=== PATIENT | female | born 1960 | race Caucasian/White ===

== ENCOUNTER → 2016-06-08 | Outpatient (CLI) | payer BC ==
[~2016-06-08] MED LIST: ASPEC81 PO; LISI-461 PO
[2016-06-08 13:03] LABS: BLOOD UREA NITROGEN 14 mg/dl (7-18); BUN/CREATININE RATIO 15.7 (10-20); CARBON DIOXIDE 27 mmol/L (21-32); CHLORIDE 110 mmol/L (98-107); CREATININE 0.91 mg/dl (0.60-1.20); GLUCOSE 90 mg/dl (70-99); SODIUM 144 mmol/L (136-145)
[2016-06-08 13:09] LABS: CHOLESTEROL 182 mg/dl (0-200); CHOLESTEROL/HDL RATIO 3.9; HDL CHOLESTEROL 47 mg/dl; TRIGLYCERIDES 120 mg/dl (0-150); VERY LOW DENSITY LIPOPROT CALC 24 mg/dl
== END | disposition home or self-care (01) ==
LOC: C.LABSPEC 12:24
PROVIDERS: ATTEND Internal Medicine
DX: E78.5 Hyperlipidemia, unspecified (principal); I10 Essential (primary) hypertension

== ENCOUNTER → 2016-11-14 | Outpatient (CLI) | payer BC ==
--- NOTE | 2016-11-15 13:42 | MAMMOGRAPHY REPORT ---
BILATERAL DIGITAL SCREENING MAMMOGRAM TOMOSYNTHESIS WITH CAD: 11/14/2016 CLINICAL HISTORY: Routine screening. TECHNIQUE: Breast tomosynthesis in addition to standard 2D mammography was performed. Current study was also evaluated with a Computer Aided Detection (CAD) system. COMPARISON: Comparison is made to exams dated: 11/09/2015 mammogram, 10/26/2014 mammogram, 10/23/2013 m ammogram, 10/07/2012 mammogram, 10/05/2011 mammogram, and 10/04/2010 mammogram - [facility] enter. BREAST COMPOSITION: There are scattered areas of fibroglandular density in both breasts. FINDINGS: The parenchymal pattern is unchanged. No developing mass, architectural distortion or clus ter of suspicious microcalcifications is seen in either breast. IMPRESSION: ACR BI-RADS CATEGORY 2: BENIGN There is no mammographic evidence of malignancy. A 1 year screening mammogram is recommended. The pa tient will receive written notification of the results. Approximately 10% of breast cancers are not detected with mammography. A negative mammographic report should not delay biopsy if a clinically suggestive mass is present. Ally Fraire M.D. ay/:11/14/2016 17:06:56 Communications Advisor: Bj DOTY(R)(M), letter sent: Normal 1/2 BI-RADS Code: ACR BI-RADS Category 2: Benign
== END | disposition home or self-care (01) ==
LOC: C.MAMM 08:08
PROVIDERS: ATTEND Internal Medicine
DX: Z12.31 Encounter for screening mammogram for malignant neoplasm of breast (principal)

== ENCOUNTER 2024-01-21 08:27 | Observation (INO) ==
--- NOTE | 2023-12-05 15:40 | PAT Medication Instructions ---
Medication Instructions Date of Service December 05, 2023 Home Medications atorvastatin 20 mg tablet 20 mg PO QAM cholecalciferol (vitamin D3) 50 mcg (2,000 unit) tablet (Vitamin D3) 50 mcg PO QAM krill oil 500 mg capsule 500 mg PO QAM losartan 50 mg tablet 50 mg PO QAM omeprazole 20 mg capsule,delayed release 20 mg PO QAM triamterene 37.5 mg-hydrochlorothiazide 25 mg tablet 1 tab PO QAM STOP taking 2 weeks before surgery (or as soon as possible if surgery is within 2 weeks) krill oil 500 mg capsule 500 mg PO QAM DO NOT take the morning of surgery cholecalciferol (vitamin D3) 50 mcg (2,000 unit) tablet (Vitamin D3) 50 mcg PO QAM losartan 50 mg tablet 50 mg PO QAM triamterene 37.5 mg-hydrochlorothiazide 25 mg tablet 1 tab PO QAM Take morning of surgery With a small sip of water, OTHERWISE NOTHING TO EAT OR DRINK AFTER MIDNIGHT: atorvastatin 20 mg tablet 20 mg PO QAM omeprazole 20 mg capsule,delayed release 20 mg PO QAM Other Notes If you have any questions please call us at [phone] or [phone] or [phone] or [phone]
--- NOTE | 2023-12-13 11:10 | Anesthesiology Consultation ---
Date of Service December 13, 2023 Assessment & Plan (1) Encounter for pre-operative examination: - Case discussed in detail with Dr. Lange who advised patient is acceptable to proceed. - Outpatient joint assessment: Patient is currently scheduled for inpatient pathway. If re-evaluated and patient/surgeon requests outpatient pathway, patient is not ideal candidate for outpatient joint program from anesthesia standpoint. Chart Review Chart Review: Acceptable Risk for Surgery and Patient seen in Pre Admission Testing Teaching & Discussion Pre-Anesthesia Teaching/Discussion Notes: Instructed NPO after midnight before surgery, except medications with 15 cc of water. Medication instructions provided according to the PAT guidelines. History Surgery Operation Date: 01/21/24 12:00 Proposed Procedures p Right Total Knee Arthroplasty - Carlos Jones, Height/Weight Height: 5 ft 5 in Weight: 105.9 kg Allergies Allergy/AdvReac Type Severity Reaction Status Date / Time acetaminophen [From Percocet] AdvReac Intermediate Rash Verified 12/05/23 13:47 oxycodone [From Percocet] AdvReac Intermediate Rash Verified 12/05/23 13:47 Medications Home Medications Medication Instructions Recorded Confirmed Last Taken atorvastatin 20 mg tablet 20 mg PO QAM 12/05/23 12/05/23 Unknown cholecalciferol (vitamin D3) 50 50 mcg PO QAM 12/05/23 12/05/23 Unknown mcg (2,000 unit) tablet (Vitamin D3) krill oil 500 mg capsule 500 mg PO QAM 12/05/23 12/05/23 Unknown losartan 50 mg tablet 50 mg PO QAM 12/05/23 12/05/23 Unknown omeprazole 20 mg capsule,delayed 20 mg PO QAM 12/05/23 12/05/23 Unknown release triamterene 37.5 1 tab PO QAM 12/05/23 12/05/23 Unknown mg-hydrochlorothiazide 25 mg tablet acetaminophen 650 mg tablet 650 mg PO Q6H PRN Pain 12/13/23 12/13/23 Unknown Additional Notes: Patient reports no reaction/adverse effects with OTC acetaminophen. Past Medical History Medical History Dysphagia chronic, resolved-on omeprazole by GI recommendation; denies choking Hearing loss of both ears hearing aids History of stomach ulcers (~09/2022) HTN (hypertension) controlled, stable per pt Patient denies h/o stroke, seizures, heart attack, heart failure, DM, blood clots/DVTs or blood transfusions. Exercise / Class Metabolic Activity II 4-5 Yardwork/Stairs/Walk up hill (mild shortness of breath with one flight of stairs ongoing for several years-denies change or worsening; denies chest discomfort) Past Family History Family History (Updated 12/13/23 @ 11:22 by Katie Duran PA-C) Sister Diabetes Past Surgical History Surgical History Hx of colonoscopy Hx of esophagogastroduodenoscopy Hx of hysterectomy Past Anesthesia History No Hx of Anesthesia Complications and No Family Hx of Anesthesia Complications History of PONV No Hx of PONV and Hx of Motion Sickness Social History Smoking Status: Never smoker Do You Dip or Chew Tobacco: No Hx Alcohol Use: No Hx Substance Use: No substance use type: does not use Review of Systems Occasional snoring, denies witnessed apneas. Patient denies chest pain, fever, chills, cough, wheezing, or palpitations. Physical Exam Vital Signs Vitals BP 138/84 P 73 TEMP 97.9 SP02 95% on RA RESP 17 Physical Patient resting comfortably in chair in no acute distress, alert and oriented, responding appropriately throughout visit Full cervical extension range of motion without pain TMD 3.5 finger breadths Mallampati Score 2 Dentition: several crowns and left upper side implant, denies chipped or loose teeth, caps, or bridges Lungs: normal respiratory effort. Good air movement, clear throughout to auscultation, no adventitious breath sounds Cardiac: regular rate and rhythm, no murmurs noted Carotid arteries: negative bruit bilat Lab Results Anesthesia Preop Results Results Anesthesia Widget: WBC 7.93 K/ul (4.8-10.8) 12/13/23 Hgb 14.3 g/dl (12.0-16.0) 12/13/23 Hct 44.1 % (37.0-47.0) 12/13/23 Plt 338 K/uL (130-400) 12/13/23 PT 10.7 Seconds (9.0-12.0) 12/13/23 PTT 29 Seconds (21-31) 12/13/23 INR 1.0 (0.9-1.1) 12/13/23 Blood Type O Negative 12/13/23 Antibody Screen NEGATIVE 12/13/23 Testing Laboratory Results 12/10/23 SODIUM: 140 POTASSIUM: 4.1 CHLORIDE: 101 CO2: 26 BUN: 17 CREATININE: 1.2 GLUCOSE: 95 Electrocardiogram Date: 09/26/23 NSR, rate 77 bpm Low voltage QRS, consider pulmonary disease, pericardial effusion, or normal variant Chest X-Ray Date: 12/13/23 No active disease in the chest.
--- NOTE | 2024-01-17 10:41 | History & Physical Report ---
Date of Service January 17, 2024 Assessment & Plan (1) Osteoarthritis of right knee: We will proceed with a right total knee arthroplasty. Postoperatively she will be started on aspirin for DVT prophylaxis and kept overnight hospital for postop medical management. She plans to use energy physical therapy upon discharge. History of Present Illness Chief Complaint: Osteoarthritis of the right knee. Primary Care Provider: Sumaya Judd MD Britany is a pleasant 63-year-old female who has been dealing with chronic increasing right knee pain. It has been going on for years. She hasbeen seeing another provider. She hasfailed conservative treatment including x-rays and therapy. Unfortunately, her knee is to the point where she ishaving trouble doing activities she enjoys. X-rays and clinical examination been diagnostic for advanced osteoarthritis of the right knee. After failed conservative treatment, she has elected to proceed with a right total knee arthroplasty. Allergies Allergy/AdvReac Type Severity Reaction Status Date / Time acetaminophen [From Percocet] AdvReac Intermediate Rash Verified 12/05/23 13:47 oxycodone [From Percocet] AdvReac Intermediate Rash Verified 12/05/23 13:47 Home Medications Medication Instructions Recorded Confirmed Type atorvastatin 20 mg tablet 20 mg PO QAM 12/05/23 12/05/23 History cholecalciferol (vitamin D3) 50 50 mcg PO QAM 12/05/23 12/05/23 History mcg (2,000 unit) tablet (Vitamin D3) krill oil 500 mg capsule 500 mg PO QAM 12/05/23 12/05/23 History losartan 50 mg tablet 50 mg PO QAM 12/05/23 12/05/23 History omeprazole 20 mg capsule,delayed 20 mg PO QAM 12/05/23 12/05/23 History release triamterene 37.5 1 tab PO QAM 12/05/23 12/05/23 History mg-hydrochlorothiazide 25 mg tablet acetaminophen 650 mg tablet 650 mg PO Q6H PRN Pain 12/13/23 12/13/23 History Past Med/Surg History Problem List Osteoarthritis of left hip Osteoarthritis of right knee Medical History History of stomach ulcers (~09/2022) Dysphagia chronic, resolved-on omeprazole by GI recommendation; denies choking Hearing loss of both ears hearing aids HTN (hypertension) controlled, stable per pt Surgical History Hx of esophagogastroduodenoscopy Hx of colonoscopy Hx of hysterectomy Family History Sister Diabetes Social History Smoking Status: Never smoker Second Hand Exposure: No; Do You Dip or Chew Tobacco: No; Tobacco Cessation Education Requested by Patient: No Hx Alcohol Use: No Hx Substance Use: No Preferred Language: American Communication Ability: Effective Sheriff Detective Required: No Beliefs That Will Affect Care: None Current Living Situation: Spouse Other Information That Helps Us Care for You: No Feels Safe at Home: Yes Safety Concerns: Feels Safe At This Time Assistive Devices: Cane, Glasses and Hearing Aid - Bilateral Review of Systems All systems reviewed & are unremarkable except as noted in HPI & below. Physical Exam On physical examination of the right knee, she has a slight varus deformity. Tenderness palpation of the distal medial femoral condyle and over the medial j oint line.. Constitutional WD/WN, vitals as above Eyes PERRL, conjunctivae normal, anicteric sclerae ENMT external ear and nose normal, oropharynx normal Neck trachea midline, no thyromegaly Respiratory normal respiratory effort Cardiovascular RRR, no murmur, no edema Gastrointestinal (Abdomen) normal bowel sounds, soft, nontender, no hepatosplenomegaly Psychiatric A+Ox3, euthymic affect Results & Data Results & Data Laboratory Results . Diagnostic Findings X-rays of the right knee show advanced osteoarthritis with joint space narrowing, osteophyte formation, and ovph-ny-nhyw articulation. PG Care Time/CCT Total # of Minutes Spent Total Time Spent with Patient: Total time spent is greater than 50% in coordination of care (as documented) at patient's floor/unit and/or counseling patient: Coding Level of Care Code None Diagnoses Osteoarthritis of right knee M17.11
[~2024-01-21 08:27] MED LIST changes: -ASPEC81 PO; +BUPIVACAINE 0.5 % 5 MG/1 ML PF 10ML VIAL ONE; -LISI-461 PO; +ROPIVACAINE 0.5% 5 MG/ML 30 ML VIAL ONE
[2024-01-21] MEDS: GABAPENTIN 300 MG CAP PO SCH (09:24)
[2024-01-21] MEDS: ACETAMINOPHEN 500 MG TAB PO SCH ×2 (09:24→21:10)
[2024-01-21] MEDS: FAMOTIDINE 20 MG TAB PO SCH (09:24)
[2024-01-21] MEDS: LR 60ML/HR IV SCH (09:25)
[2024-01-21] MEDS: LR 500ML BOLUS, THEN 15ML/HR IV SCH (09:45)
[2024-01-21] MEDS: dexAMETHasone**PF** 10 MG/ML VIAL IV SCH (09:50)
[2024-01-21] MEDS ORDERED: fentaNYL citrate PF 100 MCG/2 ML VIAL ONE (10:03)
[2024-01-21] MEDS ORDERED: MIDAZOLAM HCL 1 MG/ML 2ML VIAL ONE (10:03)
[2024-01-21] MEDS ORDERED: ONDANSETRON INJ 2 MG/ML 2 ML VIAL ONE (10:03)
[2024-01-21] MEDS ORDERED: PROPOFOL IV EMULSION 10 MG/ML 20 ML VIAL IV ONE ×2 (10:03→12:05)
--- NOTE | 2024-01-21 10:05 | History & Physical Bridge Note ---
Date of Service January 21, 2024 History & Physical Bridge Note I have examined the patient, reviewed the History & Physical and in the interval since the performance of the History & Physical I have noted the following changes of clinical significance: no changes noted
[2024-01-21] MEDS ORDERED: ePHEDrine sulfate 50 MG/ML AMP IV PRN (10:08)
[2024-01-21] MEDS ORDERED: ATROPINE SULFATE 0.1 MG/ML 10ML SYR IV PRN (10:08)
[2024-01-21] MEDS ORDERED: fentaNYL citrate PF 100 MCG/2 ML VIAL IV PRN (10:08)
[2024-01-21] MEDS ORDERED: KETAMINE HCL 10MG/ML SYR ONE (10:32)
[2024-01-21] MEDS: TRANEXAMIC ACID 1,000 MG **IV Pre-op IV SCH (10:38)
[2024-01-21] MEDS: ceFAZolin 2000MG 2,000 MG/15 ML SYR IV SCH ×2 (10:49→17:33)
[2024-01-21] MEDS: ROPIV 0.5% 246mg, Ketorolac 30mg, EPINEPHrine 0.5mg in NSS INFIL SCH (11:15)
[2024-01-21] MEDS: ORTHO JOINT ANESTHETIC ONE (11:16)
[2024-01-21] MEDS: TRANEXAMIC ACID 1,000 MG **IV Intra-op IV SCH (11:59)
--- NOTE | 2024-01-21 11:59 | Operative Report ---
PG Post Operative Report Pre & Post Diagnosis Operation Date: 01/21/24 11:00 Pre-Op Diagnosis: Degenerative Joint Disease Right Knee Post-Op Diagnosis: Degenerative Joint Disease Right Knee I identified the patient and participated in the time-out.: Yes Procedure Operation Date: 01/21/24 11:00 Actual Procedures p Right Total Knee Arthroplasty(Right) - Carlos Jones DO Surgeon Carlos Jones DO Painter And Paperhanger Apprentice Carlos Farmer PA-C Estimated Blood Loss 30 Findings Consistent with Post-Op Diagnosis Specimens Right femoral and tibial bone Description of Procedure Implants used: I used a Antony Persona total knee arthroplasty system with a size 10 narrow PS femur, E tibia, 31 oval patella, and a size 12 CPS polyethylene bearing. All components were cemented in place with Biomet cement. Britany arrived [facility] for the above procedure. She was seen in the preoperative holding area and the operative extremity was identified and signed. She was given a preoperative antibiotic, TXA, a spinal anesthetic and an adductor nerve block. She was taken back to the operating room and laid on the table in supine position. She was given basic sedation. The operative knee was then prepped and draped in sterile fashion. A timeout was done, and the patient and the operative extremity was properly identified. A midline incision was made directly over the patella. Dissection was taken down to the extensor mechanism. A subvastus arthrotomy was used. The medial retinaculum was released and the fat pad was mostly excised. The knee was flexed and the ACL, PCL, and meniscus were removed. A drill was sent down the center of the femoral canal followed by an intramedullary jamie. Off that jamie a distal femoral cutting block was placed. 9 mm was resected off the distal femur at 5 of valgus. A posterior referencing AP sizing guide was then placed on the distal femur. The femur measured to be a size 10. 2 drill holes were placed in 3 of external rotation. A 4-in-1 cutting block was then impacted into place. Anterior, posterior, and chamfer cuts were then made. The proximal tibia was then exposed. An external tibial alignment guide was placed. A tibial cut guide was then anchored in place and the proximal tibia was then resected. The posterior aspect of the knee was then opened up and any additional meniscus fragments and osteophytes were removed. The tibia measured to be a size E. The tibial plate was then placed in the appropriate rotation and the tibia was drilled and punched. Trial components were then placed. I used a size 12 CPS polyethylene insert. The knee was brought through a full range of motion and felt to be stable. The peg holes for the femoral component were then drilled. The patella was then everted and 9 mm was resected off the posterior aspect of the patella. The patella measured to be a size 31 oval. 3 peg holes were then drilled. A trial patella was placed. The knee was once again brought through a full range of motion and felt to be stable. Trial components were then removed. The surrounding soft tissues were injected with 100 cc of an orthopedic pain control cocktail. All components were then cemented into place with Biomet cement. The final polyethylene insert was then snapped into place. Once cement was dry the tourniquet was deflated. Hemostasis was obtained. A dilute betadyne lavage was then done for 3 minutes. The joint was then irrigated with normal saline solution. The subvastus arthrotomy was then closed with #1 Vicryl suture. The skin was closed with 2-0 Vicryl, 3-0V lock suture, and huber. A soft compressive dressing was placed. She was then transferred to a hospital bed and taken to the postanesthesia care unit in stable condition. She tolerated the procedure well. Carlos Farmer PA-C, was present for the entire procedure. He was critical for patient positioning, prepping, draping, retraction exposure, wound closure and application of sterile dressing. I attest to the content of the Intraoperative Record and any orders documented therein. Any exceptions are noted below.
[2024-01-21] MEDS ORDERED: PHENYLEPHRINE 100MCG/ML 10ML SYR IV ONE (12:04)
--- NOTE | 2024-01-21 12:49 | XRay Report ---
XR knee RT 1 or 2V routine HISTORY: 63 years-old Female Surgical Post Op right knee arthroplasty COMPARISON: 11/13/2023 TECHNIQUE: 2 views the right knee FINDINGS: Total joint arthroplasty with patellar resurfacing. Anterior midline skin huber with expected posto perative soft tissue swelling and deep tissue air. IMPRESSION: Total joint arthroplasty with expected postoperative changes. ACT 112: Negative or not required by law. The above report was generated using voice recognition software. It may contain grammatical, syntax o r spelling errors. Electronically signed by: Girish Wallace M.D. 01/21/2024 12:48 PM
[2024-01-21] MEDS: ONDANSETRON INJ 2 MG/ML 2 ML VIAL IV PRN (13:58)
[2024-01-21] MEDS: PROMETHAZINE HCL INJ 25 MG/ML 1 ML VIAL ONE (14:25)
--- NOTE | 2024-01-21 14:25 | Anesthesiology Progress Note ---
Date of Service January 21, 2024 Anesthesia Post Procedure Vital Signs Vital Signs: Temp Pulse Pulse Resp BP Pulse Ox O2 Del Method 01/21/24 14:00 36.4 C L 72 12 140/83 97 Nasal Cannula 01/21/24 13:50 72 14 144/86 H 97 Nasal Cannula 01/21/24 13:40 66 12 132/87 96 Nasal Cannula 01/21/24 13:30 67 14 128/81 95 Nasal Cannula 01/21/24 13:20 69 12 127/89 96 Nasal Cannula 01/21/24 13:10 74 16 146/80 H 94 Nasal Cannula 01/21/24 13:00 70 12 132/86 97 Nasal Cannula 01/21/24 12:50 72 12 127/90 94 Nasal Cannula 01/21/24 12:40 75 12 124/83 99 Nasal Cannula 01/21/24 12:30 72 16 129/86 97 Nasal Cannula 01/21/24 12:20 36.1 C L 87 12 136/84 97 Oxymask 01/21/24 09:05 36.9 C 84 20 149/82 H 96 Room Air O2 Flow Rate 01/21/24 14:00 3 01/21/24 13:50 3 01/21/24 13:40 3 01/21/24 13:30 3 01/21/24 13:20 3 01/21/24 13:10 3 01/21/24 13:00 3 01/21/24 12:50 3 01/21/24 12:40 3 01/21/24 12:30 3 01/21/24 12:20 6 01/21/24 09:05 Transfer of Care Handoff Completed per policy Notes Mental Status: alert / awake / arousable and participated in evaluation Patient Amnestic to Procedure: Yes Nausea / Vomiting: adequately controlled Pain: adequately controlled Airway Patency, RR, SpO2: stable & adequate BP & HR: stable & adequate Hydration State: stable & adequate Neuraxial Anesthesia: was administered and sensory block is resolving Anesthetic Complications: no major complications apparent and Pt Satisfied with anesthetic care
[2024-01-21] MEDS: PROMETHAZINE 6.25 MG/50.25 ML BAG IV STA (14:26)
[2024-01-21] MEDS ORDERED: HYDROmorphone INJ 0.5 MG/0.5 ML SYR IV PRN (14:49)
[2024-01-21] MEDS ORDERED: METOCLOPRAMIDE HCL INJ 5 MG/ML 2 ML VIAL IV PRN (14:49)
[2024-01-21] MEDS ORDERED: bisacodyL 10 MG SUPP PR PRN (14:49)
[2024-01-21] MEDS ORDERED: ONDANSETRON INJ 2 MG/ML 2 ML VIAL IV PRN (14:49)
[2024-01-21] MEDS ORDERED: NALOXONE HCL 0.4 MG/1 ML VIAL/CARP IV PRN (14:49)
[2024-01-21] MEDS ORDERED: MAGNESIUM HYDROXIDE SUSP 30 ML UDC PO PRN (14:49)
[2024-01-21] MEDS: SODIUM CHLORIDE 0.9% 1,000 ML IV SCH (15:31)
[2024-01-21] MEDS: oxyCODONE HCL IR 5 MG TAB (IMMEDIATE RELEASE) PO PRN (16:06)
[2024-01-21] MEDS: KETOROLAC TROMETHAMINE 15 MG/ML VIAL IV SCH (16:06)
[2024-01-21] MEDS: DOCUSATE SODIUM 100 MG CAP PO SCH (21:09)
[2024-01-21] MEDS: SENNA 8.6 MG TAB PO SCH (21:09)
[2024-01-21] MEDS: ASPIRIN 81 MG ECTAB PO SCH (21:10)
[2024-01-22 03:12] VITALS: O2SAT 94
--- NOTE | 2024-01-22 07:01 | Orthopedic Progress Note ---
Date of Service January 22, 2024 Assessment & Plan (1) Status post right knee replacement: Overall she is doing very well. She is not having much pain in the right knee. She will be seen by physical therapy today for ambulation and range of motion exercises. The nursing staff can change her dressing after physical therapy. She is on aspirin for DVT prophylaxis. She can be discharged to home later today. She will follow-up with orthopedics in 2 weeks. Fredy Garg was seen and examined at bedside this morning. Overall she is doing very well. She is not having much pain in the right knee. She has been up and ambulating to the bathroom. She has no complaints.. Review of Systems All systems reviewed & are unremarkable except as noted in HPI & below. Physical Exam On physical examination of the right knee, the dressing is clean and dry. Her leg is out full extension. She has active dorsiflexion plantarflexion of her right ankle.. Results & Data Results & Data Laboratory Results . Diagnostic Findings Postoperative x-rays of the right knee show the prosthesis to be in anatomic alignment without any evidence of fracture, dislocation, or loosening.. PG Care Time/CCT Total # of Minutes Spent Total Time Spent with Patient: Total time spent is greater than 50% in coordination of care (as documented) at patient's floor/unit and/or counseling patient: Coding Level of Care Code 49607 Post Operative Follow-Up Diagnoses Status post right knee replacement Z96.651
--- NOTE | 2024-01-22 07:02 | Discharge Summary ---
Date of Service January 22, 2024 Admission HPI (Per Admitting) Britany is a pleasant 63-year-old female who has been dealing with chronic increasing right knee pain. It has been going on for years. She hasbeen seeing another provider. She hasfailed conservative treatment including x-rays and therapy. Unfortunately, her knee is to the point where she ishaving trouble doing activities she enjoys. X-rays and clinical examination been diagnostic for advanced osteoarthritis of the right knee. After failed c onservative treatment, she has elected to proceed with a right total knee arthroplasty. Admission Exam (Per Admitting) On physical examination of the right knee, she has a slight varus deformity. Tenderness palpation of the distal medial femoral condyle and over the medial joint line.. Principal Diagnosis Same as "Discharge Diagnosis" noted below under Discharge Instructions. Discharge Exam On physical examination of the right knee, the dressing is clean and dry. Her leg is out full extension. She has active dorsiflexion plantarflexion of her right ankle.. Discharge Data Procedures Performed Operation Date: 01/21/24 11:00 Actual Procedures p Right Total Knee Arthroplasty(Right) - Carlos Jones DO Ordered Studies 01/21/24 05:00 US - OR guided needle placemen Routine Hospital Course (1) Status post right knee replacement: On January 21, 2024 Britany arrived at [facility] and underwent a right knee replacement without complication. She had a spinal anesthetic. Postoperatively she was started on aspirin for DVT prophylaxis and transferred to the general orthopedic floors. Her hospital course was uneventful. On postop day #1, her vital signs were stable and her pain was well-controlled. She was able to participate well with physical therapy doing ambulation and range of motion exercises. She was then discharged to home. She will follow-up with orthopedics in 2 weeks. PG Care Time/CCT Total # of Minutes Spent Total Time Spent with Patient: Total time spent is greater than 50% in coordination of care (as documented) at patient's floor/unit and/or counseling patient: Discharge Plan Discharge Items Patient Disposition: Home - Self-Care Reason For Visit: Degenerative Joint Disease Right Knee Discharge Diagnosis: Right knee replacement Activity: Per Instructions section Non-emergency contact: Surgeon Call non-emergency contact if: your wound has increased redness and your wound has increased drainage Follow-up/Referrals: Sumaya Judd MD [Primary Care Provider] - Diet: Regular Addtl Attending Provider Instructions: Activity and Therapy Recommendations: * If you are using [facility] then therapy will be provided at your home until they feel you have accomplished all of your goals. * If you are using [facility] then Physical Therapy will be provided until they feel you are ready to start Outpatient Physical Therapy. * If you are not using home therapy then Outpatient Physical Therapy should start about 3-5 days from your day of surgery. Therapy will last about 6-10 weeks * It is important not to put a pillow under your knee when you are relaxing or sleeping. It is just as important to make sure you are getting your knee perfectly straight as it is to regain your knee bend. * You were shown a series of exercises in the hospital. Do these exercises three times each day including the exercises you were shown in physical therapy. * Get up and walk several times each day. For the first four weeks, try not to stand or walk for more than one hour at a time. If you do stand or walk for more than one hour, you will not hurt anything, but your leg will likely swell. * As you feel comfortable, you may change from the walker or crutches to a cane and then to independent walking. Medications: * Narcotic You will likely be sent home from the hospital with a prescription for the narcotic pain medication that worked best throughout your stay. * Cefadroxil -take the antibiotic twice a day for 10 days to help prevent infection. * Aspirin Most patients will be required to take Aspirin 81mg twice a day for 6 weeks after surgery. This is obtained [id number] and a prescription is not necessary. * Other medications may be prescribed for specific circumstances. If you have any questions, please call the office at . * Resume previous home medications unless otherwise instructed TEDs/Elastic Stockings: The white elastic stockings help limit swelling and prevent blood clots from forming in your legs.~ The more you wear them, the more they work. Wear them for six weeks. Dressing Care: The dressing can be changed after physical therapy on postop day #1. Daily dry dressing changes for a few days, especially if the incision is still draining some. If the incision is not draining then you may leave the huber open to air. If there is a little bit of drainage or if the huber are getting stuck on your clothing then cover the incision with a dry dressing. The huber will be removed at your 2 week follow-up appointment. Showering: You may shower 5 days from the day of surgery as long as the incision is no longer draining. You may shower with the huber exposed. Let soapy water run over the huber and pat them dry. Do not scrub or soak the incision. Diet: You may resume your previous diet. Things To Watch For: * Drainage from the incision site that occurs more than one week after your surgery. * Increased redness at the incision site. * Fever above 102 degrees Fahrenheit. * Unusual chest pain or shortness of breath. * Call [facility] at with any of the above problems Follow-Up Visit: Follow-up with Dr. Jones's PA (Carlos Farmer) 2-3 weeks after your day of surgery. He will remove your huber and answer any questions. If you have any additional questions or concerns, Dr Jones is usually in the office at the same time and will be available An appointment was probably scheduled when you signed-up for surgery in the office. If you have any questions call Office Instructions: More detailed instructions as well as Frequently Asked Questions were provided in a folder by our office when you signed-up for surgery. Please review these instructions when you get home. If you have any further questions or concerns, please feel free to call the office at [phone] Pending Studies at Discharge: No Stand-Alone Forms: [facility] Sm[facility] Cessation Medications and DC Order Prescriptions: New oxycodone 5 mg Tablet 5 mg PO Q4H PRN (Reason: pain) Qty: 30 0RF cefadroxil 500 mg capsule 500 mg PO BID 10 Days Qty: 20 0RF aspirin 81 mg Tablet,Delayed Release (Dr/Ec) 81 mg PO BID Qty: 0 0RF Continued losartan 50 mg Tablet 50 mg PO QAM atorvastatin 20 mg Tablet 20 mg PO QAM triamterene-hydrochlorothiazid 37.5-25 mg Tablet 1 tab PO QAM omeprazole 20 mg Capsule,Delayed Release(Dr/Ec) 20 mg PO QAM cholecalciferol (vitamin D3) [Vitamin D3] 50 mcg (2,000 unit) Tablet 50 mcg PO QAM krill oil 500 mg Capsule 500 mg PO QAM acetaminophen 650 mg Tablet 650 mg PO Q6H PRN (Reason: Pain) Discharge Orders: Discharge Order (Routine); Ordered 01/22/24 Ordered By: Carlos Jones Admission Data Admit Date/Time: 01/21/24 12:22 Attending Provider: Carlos Jones Admit Provider: Carlos Jones Primary Care Provider: Sumaya Judd
[2024-01-22 07:40] VITALS: BP 137/87; RESP 18; TEMP 98.1
[2024-01-22] MEDS: dexAMETHasone 4 MG TAB PO SCH (08:10)
[2024-01-22] MEDS: MULTIVITAMIN TAB PO SCH (08:11)
[2024-01-22] MEDS: LOSARTAN POTASSIUM 50 MG TAB PO SCH (08:11)
[2024-01-22] MEDS: ATORVASTATIN 20 MG TAB PO SCH (08:11)
[2024-01-22] MEDS: TRIAMTERENE/HCTZ 37.5/25MG TAB PO SCH (08:11)
[2024-01-22 10:03] VITALS: PULSE 83
== END 2024-01-22 10:38 | disposition home or self-care (01) ==
LOC: ASU 08:27 → PACUINP 08:27 → 3N 15:21